=== PATIENT | female | born 1955 | race Caucasian/White ===

== ENCOUNTER 2017-03-15 10:24 | Emergency (ER) | payer OTHER ==
[2017-03-15 11:28] LABS: Bilirubin Negative (Negative); Blood, Urine Small (Negative); Clarity CLOUDY (Clear); Glucose, Urine (Dipstick) Negative (Negative); Leukocyte Small (Negative); Nitrite Positive (Negative); Protein, Urine (Dipstick) Negative (Neg-Trace); Specific Gravity, Urine 1.017 (1.002-1.036); Urobilinogen 0.2 mg/dL (0.2-1.0)
[2017-03-15 11:32] LABS: Bacteria/HPF 4+ HPF (None Seen); Hyaline Casts/LPF 0-3 HYALINE CAST LPF (0-3 Hyaline); Pathc Cast-AUWi Flag 0.13 (0-2.49); Squamous Epithelial 0-3 HPF (0-3)
[2017-03-15 11:40] LABS: #Basophils 0.2 thou/uL (0.0-0.2); #Eosinphils 0.5 thou/uL (0.0-0.7); #Lymphocytes 2.3 thou/uL (1.20-3.40); #Monocytes 0.8 thou/uL (0.11-0.59); #Neutrophils 6.7 thou/uL (1.40-6.50); %Basophils 1.5 % (0.0-1.0); %Eosinophils 4.4 % (0.0-10.0); %Lymphocytes 22.1 % (21.0-51.0); %Neutrophils 64.1 % (42.0-75.0); Hemoglobin 13.1 g/dL (12.0-16.0); Mean Corpuscular HGB CONC 33.9 g/dL (32.0-36.0); Mean Corpuscular Hemoglobin 30.1 pg (27.0-31.0); Mean Corpuscular Volume 88.9 fl (81.0-99.0); Mean Platelet Volume 8.6 fL (7.4-10.4); Platelet Count 252 thou/uL (130-400); Red Blood Cell (RBC) Count 4.33 mill/uL (4.20-5.40); White Blood Cell (WBC) Count 10.4 thou/uL (4.8-10.8)
[2017-03-15 12:09] LABS: CKMB 0.7 ng/mL (0-6.6); Troponin I 0.012 ng/mL (< 0.028)
[2017-03-15 12:10] LABS: Anion Gap 13 mmol/L (10-20); BUN (Urea Nitrogen) 17 mg/dL (9.8-20.1); Calc. Creatinine Clearance 0 mL/min (70-130); Calcium 9.6 mg/dL (7.8-10.44); Carbon Dioxide 25 mmol/L (22-29); Chloride 103 mmol/L (98-107); Estimated GFR-MDRD 33; Glucose 85 mg/dL (70-105); Potassium 4.1 mmol/L (3.5-5.1); Sodium 137 mmol/L (136-145)
--- NOTE | 2017-03-15 12:16 | RAD ---
CHEST 1 VIEW PORTABLE: Date: 03/15/17 HISTORY: 61-year-old female with history of cough, dizziness, sore throat, and chest congestion. COMPARISON: 10/20/15. FINDINGS: Monitor leads overlie the chest. Postop midline sternotomy. Old granuloma calcifications. Stable blun ting in the left costophrenic angle. No confluent pneumonia, overt edema, or other acute process. IMPRESSION: Stable chronic changes, including blunting in the left costophrenic angle. Old granulomatous disease. No acute intrathoracic disease. No evidence for pneumonia. POS: [facility]
--- NOTE | 2017-04-27 11:44 | EKG ---
Test Reason : Blood Pressure : / mmHG Vent. Rate : 063 BPM Atrial Rate : 063 BPM P-R Int : 176 ms QRS Dur : 080 ms QT Int : 438 ms P-R-T Axes : 061 029 047 degrees QTc Int : 448 ms Normal sinus rhythm Possible Left atrial enlargement Borderline ECG Confirmed by MEKHI SANZ, AKI Mchugh ([id number]), proposal editor LUZ MARIA ARNOLD ([id number]) on 04/27/2017 11:43:38 AM Referred By: Confirmed By:AKI GAMING MD
== END 2017-03-15 14:15 | disposition home or self-care (01) ==
LOC: ERS 10:24
DX: N39.0 Urinary tract infection, site not specified (principal); R51 Headache; R55 Syncope and collapse; E78.5 Hyperlipidemia, unspecified; J45.909 Unspecified asthma, uncomplicated; J43.9 Emphysema, unspecified; I12.9 Hypertensive chronic kidney disease with stage 1 through stage 4 chronic kidney disease, or unspecified chronic kidney disease; N18.9 Chronic kidney disease, unspecified; F41.9 Anxiety disorder, unspecified; F17.210 Nicotine dependence, cigarettes, uncomplicated; Z79.82 Long term (current) use of aspirin; Z79.899 Other long term (current) drug therapy
CPT/HCPCS: 36415; 71045; 80048; 81003; 81015; 82553; 84484; 85025; 87077; 87086; 87186; 93005; 96374; J0696

== ENCOUNTER 2017-05-14 09:30 | Emergency (ER) | payer OTHER ==
[2017-05-14] MEDS ORDERED: Ondansetron HCl/PF 4 MG/2 ML Vial ONE (10:12)
[2017-05-14 10:15] LABS: #Eosinphils 0.2 thou/uL (0.0-0.7); #Monocytes 0.4 thou/uL (0.11-0.59); %Basophils 0.6 % (0.0-1.0); %Lymphocytes 18.1 % (21.0-51.0); %Monocytes 7.5 % (0.0-10.0); %Neutrophils 70.9 % (42.0-75.0); Hemoglobin 11.6 g/dL (12.0-16.0); Mean Corpuscular HGB CONC 34.8 g/dL (32.0-36.0); Mean Corpuscular Hemoglobin 30.3 pg (27.0-31.0); Mean Corpuscular Volume 87.2 fl (81.0-99.0); Mean Platelet Volume 8.5 fL (7.4-10.4); Platelet Count 190 thou/uL (130-400); RBC Distribution Width 11.7 % (11.5-14.5); Red Blood Cell (RBC) Count 3.84 mill/uL (4.20-5.40); White Blood Cell (WBC) Count 5.6 thou/uL (4.8-10.8)
[2017-05-14 10:37] LABS: ALT (SGPT) 12 U/L (8-55); AST (SGOT) 17 U/L (5-34); Albumin 3.6 g/dL (3.5-5.0); Alkaline Phosphatase 65 U/L (40-150); Anion Gap 11 mmol/L (10-20); BUN (Urea Nitrogen) 21 mg/dL (9.8-20.1); Bilirubin, Total 0.3 mg/dL (0.2-1.2); Calc. Creatinine Clearance 0 mL/min (70-130); Carbon Dioxide 21 mmol/L (22-29); Chloride 108 mmol/L (98-107); Estimated GFR-MDRD 32; Globulin 2.4 g/dL (2.4-3.5); Glucose 89 mg/dL (70-105); Lipase 20 U/L (8-78); Potassium 3.1 mmol/L (3.5-5.1); Sodium 137 mmol/L (136-145)
--- NOTE | 2017-05-14 10:53 | CT ---
CT ABDOMEN AND PELVIS WITHOUT CONTRAST: Date: 05/14/17 COMPARISON: 01/26/16. HISTORY: Nausea and abdominal pain with vomiting. TECHNIQUE: Multiple contiguous axial images were obtained in a CT of the abdomen and pelvis without contrast. Co arielle reformats were performed. FINDINGS: There are calcifications in the liver and spleen, which are likely sequelae from prior granulomatous disease. No suspicious liver lesions are seen. The gallbladder, kidneys, adrenal glands, and pancreas are unremarkable, although evaluation is limited on this noncontrast examination. The patient is status post hysterectomy. The large and small bowel are unremarkable. The appendix is normal. No abdominal or pelvic lymphadenopathy seen. Atherosclerotic calcifications are seen in the a albina. Atelectasis versus scarring is seen in the left lung base. Degenerative changes and postsurgical ibrahim ges are seen in the spine. Abdominal wall soft tissues are unremarkable. IMPRESSION: No evidence of acute intra-abdominal/pelvic abnormality. POS: [facility]
[2017-05-14] MEDS ORDERED: Potassium Chloride 20 MEQ TAB ONE (13:19)
[2017-05-14] MEDS ORDERED: Dicyclomine 20 MG TAB ONE (13:19)
[2017-05-14 13:35] LABS: Bilirubin Negative (Negative); Blood, Urine Moderate (Negative); Clarity CLEAR (Clear); Glucose, Urine (Dipstick) Negative (Negative); Leukocyte Trace (Negative); Nitrite Positive (Negative); Protein, Urine (Dipstick) Negative (Neg-Trace); Urobilinogen 0.2 mg/dL (0.2-1.0); pH, Urine 5.5 (5.0-9.0)
[2017-05-14 13:40] LABS: Bacteria/HPF 3+ HPF (None Seen); Hyaline Casts/LPF NONE SEEN LPF (0-3 Hyaline); RBC/HPF 0-3 HPF (0-3); Squamous Epithelial 0-3 HPF (0-3); WBC/HPF 0-3 HPF (0-3)
--- NOTE | 2017-05-16 15:02 | EKG ---
Test Reason : Blood Pressure : / mmHG Vent. Rate : 076 BPM Atrial Rate : 076 BPM P-R Int : 176 ms QRS Dur : 084 ms QT Int : 396 ms P-R-T Axes : 062 017 046 degrees QTc Int : 445 ms Normal sinus rhythm Possible Left atrial enlargement Nonspecific T wave abnormality Abnormal ECG Confirmed by ROSE HARRISON ([id number]), commissioning editor LUZ MARIA ARNOLD ([id number]) on 05/16/2017 3:00:40 PM Referred By: Confirmed By:ROSE HARRISON
== END 2017-05-14 14:48 | disposition home or self-care (01) ==
LOC: ERS 09:30
DX: N39.0 Urinary tract infection, site not specified (principal); E78.5 Hyperlipidemia, unspecified; J45.909 Unspecified asthma, uncomplicated; I12.9 Hypertensive chronic kidney disease with stage 1 through stage 4 chronic kidney disease, or unspecified chronic kidney disease; N18.9 Chronic kidney disease, unspecified; J43.9 Emphysema, unspecified; F41.9 Anxiety disorder, unspecified; F17.210 Nicotine dependence, cigarettes, uncomplicated; Z79.899 Other long term (current) drug therapy; Z79.82 Long term (current) use of aspirin
CPT/HCPCS: 36415; 74176; 80053; 81003; 81015; 83605; 83690; 85025; 87077; 87086; 87186; 93005; 96361; 96374; 96375; J0696; J2405

== ENCOUNTER 2017-08-07 13:27 | Observation (INO) | payer OTHER ==
[2017-08-07 14:13] LABS: #Basophils 0.1 thou/uL (0.0-0.2); #Eosinphils 0.4 thou/uL (0.0-0.7); #Lymphocytes 2.4 thou/uL (1.20-3.40); #Monocytes 0.7 thou/uL (0.11-0.59); #Neutrophils 5.8 thou/uL (1.40-6.50); %Basophils 1.3 % (0.0-1.0); %Lymphocytes 25.6 % (21.0-51.0); %Monocytes 7.3 % (0.0-10.0); %Neutrophils 61.8 % (42.0-75.0); Hemoglobin 12.2 g/dL (12.0-16.0); Mean Corpuscular HGB CONC 34.8 g/dL (32.0-36.0); Mean Corpuscular Hemoglobin 29.9 pg (27.0-31.0); Mean Platelet Volume 8.9 fL (7.4-10.4); Platelet Count 221 thou/uL (130-400); RBC Distribution Width 12.1 % (11.5-14.5); Red Blood Cell (RBC) Count 4.07 mill/uL (4.20-5.40); White Blood Cell (WBC) Count 9.4 thou/uL (4.8-10.8)
--- NOTE | 2017-08-07 14:29 | RAD ---
CHEST ONE VIEW: Comparison: 03-15-17 History: Left flank pain. FINDINGS: There are sternotomy wires. There is atherosclerosis of the aortic knob. Normal cardiac silhouette. P ulmonary vessels and hilum are normal. Persistent blunting of the left costophrenic angle. Right cost ophrenic angle is clear. No consolidation or masses. Chronic change in the lung bases. No pneumothora x or osseous abnormality. IMPRESSION: 1. Chronic changes. 2. No acute cardiopulmonary process. 3. Atherosclerosis. POS: [facility]
[2017-08-07 14:34] LABS: ALT (SGPT) 11 U/L (8-55); AST (SGOT) 15 U/L (5-34); Alkaline Phosphatase 88 U/L (40-150); Anion Gap 12 mmol/L (10-20); BUN (Urea Nitrogen) 16 mg/dL (9.8-20.1); Bilirubin, Total 0.3 mg/dL (0.2-1.2); CK (CPK) 77 U/L (29-168); Calc. Creatinine Clearance 0 mL/min (70-130); Calcium 9.1 mg/dL (7.8-10.44); Carbon Dioxide 24 mmol/L (23-31); Chloride 106 mmol/L (98-107); Estimated GFR-MDRD 33; Globulin 2.9 g/dL (2.4-3.5); Glucose 89 mg/dL (80-115); Lipase 37 U/L (8-78); Potassium 3.9 mmol/L (3.5-5.1); Protein, Total 6.9 g/dL (6.0-8.3); Sodium 138 mmol/L (136-145)
[2017-08-07 15:08] LABS: CKMB 0.8 ng/mL (0-6.6); Troponin I 0.019 ng/mL (< 0.028)
--- NOTE | 2017-08-07 15:45 | CT ---
CT ABDOMEN AND PELVIS WITHOUT CONTRAST: 08/07/17 HISTORY: Left upper quadrant, left lower quadrant and left flank pain. FINDINGS: Comparison is made with exam of 05/14/17. Absence of oral and IV contrast reduces the sensitivity for the exam particularly for the evaluation of solid organs and bowel. There are atelectatic changes of the left lung base. Calcified granulomas are seen in the liver and s pleen. No calcified gallstones are noted. No free air or free fluid is seen in the abdomen or pelvis. A normal appearing appendix is noted. The patient is post hysterectomy. No calculi is seen in the kidneys, ureters or the urinary bladder. No hydroureteronephrosis is noted. There is scattered colonic diverticulosis without evidence of diverticulitis. There are vascular calcifications without evidence of aneurysmal dilatation of the abdominal aorta. There are degenerative changes in the spine. IMPRESSION: 1. No CT evidence of renal calculi or obstruction. 2. Colonic diverticulosis. 3. Old granulomatous disease in the liver and spleen. POS: [facility]
[2017-08-07 16:41] LABS: Bilirubin Negative (Negative); Blood, Urine Trace (Negative); Clarity CLEAR (Clear); Glucose, Urine (Dipstick) Negative (Negative); Leukocyte Trace (Negative); Nitrite Positive (Negative); Protein, Urine (Dipstick) Negative (Neg-Trace); Specific Gravity, Urine 1.012 (1.002-1.036); Urobilinogen 0.2 mg/dL (0.2-1.0)
[2017-08-07 16:44] LABS: Bacteria/HPF 4+ HPF (None Seen); Hyaline Casts/LPF 0-3 HYALINE CAST LPF (0-3 Hyaline); Pathc Cast-AUWi Flag 0.29 (0-2.49); RBC/HPF 0-3 HPF (0-3); Squamous Epithelial 0-3 HPF (0-3); WBC/HPF 0-3 HPF (0-3)
[2017-08-07] MEDS ORDERED: cefTRIAXone\\ROCEPHIN 2 GM VIAL ONE (17:34)
[2017-08-07] MEDS ORDERED: Ondansetron ODT 4 MG TAB ONE (17:34)
[2017-08-07 19:46] VITALS: BMI 28.5
[2017-08-07] MEDS ORDERED: Ondansetron ODT 4 MG TAB SL PRN (19:48)
[2017-08-07] MEDS ORDERED: Sodium Chloride 0.9% 1,000 ML IV SCH (19:48)
[2017-08-07] MEDS ORDERED: Ondansetron HCl/PF 4 MG/2 ML Vial IVP PRN (19:48)
[2017-08-07] MEDS ORDERED: PROVENTIL INHALER 6.7 G (200 INHALATIONS) INH PRN (20:25)
[2017-08-07] MEDS: Sodium Chloride 0.9% 1,000 ML IV SCH (20:55)
[2017-08-07] MEDS: Acetaminophen 325 MG TAB PO SCH (22:16)
[2017-08-07] MEDS: ALPRAZolam 0.5 MG TAB PO SCH (22:16)
[2017-08-07] MEDS: diphenhydrAMINE 25 MG CAP PO SCH (22:17)
[2017-08-07] MEDS: Famotidine 20 MG TAB PO SCH (22:17)
[2017-08-07] MEDS: Simvastatin 20 MG TAB PO SCH (22:17)
[2017-08-08] MEDS ORDERED: Ondansetron ODT 4 MG TAB SL PRN (00:18)
[2017-08-08] MEDS ORDERED: Ondansetron HCl/PF 4 MG/2 ML Vial IVP PRN (00:18)
[2017-08-08] MEDS: ALPRAZolam 0.5 MG TAB PO SCH ×3 (08:34→22:20)
[2017-08-08] MEDS: Ibuprofen 600 MG TAB PO PRN ×2 (08:34→14:53)
[2017-08-08] MEDS: Lisinopril/Hydrochlorothiazide 10 mg/12.5 mg Tablet PO SCH (08:34)
[2017-08-08] MEDS: Aspirin 81 mg Enteric Coated Tablet PO SCH (08:34)
[2017-08-08] MEDS: cefTRIAXone\\ROCEPHIN 2 GM in Sodium Chloride 0.9% 100 ML IVPB SCH (11:58)
[2017-08-08] MEDS: Sodium Chloride 0.9% 1,000 ML IV SCH (11:59)
--- NOTE | 2017-08-08 13:03 | ULT ---
RENAL ULTRASOUND: Date: 08-08-17 Comparison: None. History: Evaluate for pyelonephritis. Technique: Multiplanar grayscale sonographic imaging of the kidneys and urinary bladder obtained. FINDINGS: Pyelonephritis cannot be excluded on the basis of renal ultrasound. The right kidney measures 8.6 x 3 .8 x 3.4 cm. Left kidney measures 8.4 x 4.0 x 4.1 cm. There is no renal mass, hydronephrosis, or daysi l stones seen on either side. Urinary bladder appears grossly unremarkable. IMPRESSION: Unremarkable renal ultrasound. POS: [facility]
--- NOTE | 2017-08-08 13:57 | HP ---
REASON CHIEF COMPLAINT: Abdominal pain, left side, left upper quadrant and the left lower quadrant a nd left flank also that started in the morning. HISTORY OF PRESENT ILLNESS: Ms. Ulloa is a 62-year-old female with past medical history o f hypertension, anxiety disorder, chronic back pain, came because of pain in the left flank area as w ell as left upper and lower quadrant of the abdomen, acute onset, started in the morning. The patien t stated the pain is sharp in nature, sometimes radiates to the front, but no fever, she has some eda sea, no vomiting. The pain was getting worse, so she decided to come to the hospital because of wors ening pain. In the ER, the patient was evaluated and was hemodynamically stable, but found to have p ossible urinary infection, possible pyelonephritis. The patient received a dose of Rocephin 2 grams and IV fluids. She also received Zofran and admitted for further evaluation and management. PAST MEDICAL HISTORY: 1. Anxiety disorder. 2. Hypertension. 3. History of coronary artery disease, status post coronary artery bypass graft. 4. Chronic neck pain and back pain. 5. Chronic smoker. 6. Hyperlipidemia. 7. Severe degenerative joint disease of the cervical spine. 8. Chronic kidney disease stage 3. PAST SURGICAL HISTORY: 1. Status post CABG. 2. Status hysterectomy. 3. Status post appendectomy. CURRENT MEDICATIONS: The patient is on Xanax 0.5 t.i.d., albuterol inhaler 2 puffs q.i.d. p.r.n., as pirin 81 mg daily, Pepcid 20 mg b.i.d., lisinopril/hydrochlorothiazide 10/12.5 daily, ibuprofen p.r.n ., Benadryl p.r.n., Zocor 20 mg at bedtime. ALLERGIES: Multiple: SULFA, CODEINE, ASPIRIN, HYDROCODONE, CIPRO, LEVAQUIN, PLAVIX, TORADOL. FAMILY HISTORY: Nothing contributory. SOCIAL HISTORY: The patient lives with family. No history of alcohol intake. Smokes one pack a day . REVIEW OF SYSTEMS: CARDIOVASCULAR: No chest pain or shortness of breath. RESPIRATORY: No fever or cough. GASTROINTESTINAL: Has abdominal pain, left upper and lower quadrants and flank pain. SOCIAL SERVICES ASSISTANT: No headache, no dizziness. PHYSICAL EXAMINATION: GENERAL: The patient is alert, awake, oriented x3. VITAL SIGNS: Temperature 98, pulse 63. HEENT: Pupils are equal and reactive. Nasopharynx is pale and dry. Hard and soft palate, no lesio ns. Skin turgor decreased. NECK: Supple. No JVD. LUNGS: Bilateral air entry present, no rales, no rhonchi. CARDIAC: S1, S2 regular. ABDOMEN: Soft. Tenderness present in the left flank area and upper and lower quadrants. No guardin g, no rigidity. Bowel sounds present. RECTAL: Deferred. CENTRAL NERVOUS SYSTEM: No focal deficit. LABORATORY AND X-RAY FINDINGS: CBC shows WBC 9.4, hemoglobin 12, hematocrit 35, platelets 221. [place] bolic panel; sodium 138, potassium 3.9, chloride 106, CO2 24, urea nitrogen 16, creatinine 1.5, gluco se 89. Urinalysis showed WBCs 0-3, bacteria 4+, nitrite positive. Chest x-ray, no acute cardiopulmo nary process, chronic changes seen. CT of the abdomen and pelvis showed no CT evidence of renal calc nuris or obstruction, shows colonic diverticulosis or granulomatous disease in the liver and spleen. E KG shows normal sinus rhythm, no acute ST-T wave changes seen. ASSESSMENT: 1. Urinary tract infection, possible acute pyelonephritis, left. 2. Acute kidney injury. 3. Hypertension, uncontrolled. 4. Chronic kidney disease stage 3. 5. Coronary artery disease, status post coronary artery bypass graft. 6. Hypertension. 7. Chronic neck pain and back pain. PLAN: 1. Vital signs q.4 hours. 2. Activity: As tolerated. 3. Allergies: Multiple. 4. IV fluids normal saline at 80 mL per hour. 5. Rocephin 2 grams IV piggyback daily. 6. Urine cultures. 7. Continue home medication. 8. We will obtain renal sonogram. 9. Diet: Cardiac.
[2017-08-08] MEDS: Famotidine 20 MG TAB PO SCH (14:52)
[2017-08-08] MEDS ORDERED: traMADol HCl 50 MG TAB PO PRN (15:03)
[2017-08-08] MEDS: diphenhydrAMINE 25 MG CAP PO SCH (22:19)
[2017-08-08] MEDS: Acetaminophen 325 MG TAB PO SCH (22:19)
[2017-08-08] MEDS: Simvastatin 20 MG TAB PO SCH (22:20)
[2017-08-09] MEDS: Sodium Chloride 0.9% 1,000 ML IV SCH (03:36)
[2017-08-09 04:33] LABS: #Basophils 0.1 thou/uL (0.0-0.2); #Eosinphils 0.6 thou/uL (0.0-0.7); #Monocytes 0.6 thou/uL (0.11-0.59); #Neutrophils 3.5 thou/uL (1.40-6.50); %Basophils 1.4 % (0.0-1.0); %Eosinophils 7.4 % (0.0-10.0); %Lymphocytes 38.4 % (21.0-51.0); %Neutrophils 44.8 % (42.0-75.0); Hemoglobin 10.1 g/dL (12.0-16.0); Mean Corpuscular Hemoglobin 29.8 pg (27.0-31.0); Mean Corpuscular Volume 87.6 fL (78.0-98.0); Mean Platelet Volume 8.8 fL (7.4-10.4); Platelet Count 179 thou/uL (130-400); RBC Distribution Width 12.2 % (11.5-14.5); Red Blood Cell (RBC) Count 3.39 mill/uL (4.20-5.40); White Blood Cell (WBC) Count 7.8 thou/uL (4.8-10.8)
[2017-08-09 04:49] LABS: Anion Gap 11 mmol/L (10-20); BUN (Urea Nitrogen) 13 mg/dL (9.8-20.1); Calc. Creatinine Clearance 50 mL/min (70-130); Calcium 8.3 mg/dL (7.8-10.44); Carbon Dioxide 24 mmol/L (23-31); Chloride 110 mmol/L (98-107); Estimated GFR-MDRD 38; Glucose 80 mg/dL (80-115); Potassium 3.9 mmol/L (3.5-5.1); Sodium 141 mmol/L (136-145)
[2017-08-09] MEDS: ALPRAZolam 0.5 MG TAB PO SCH (08:35)
[2017-08-09] MEDS: Aspirin 81 mg Enteric Coated Tablet PO SCH (08:36)
[2017-08-09] MEDS: Lisinopril/Hydrochlorothiazide 10 mg/12.5 mg Tablet PO SCH (08:36)
[2017-08-09] MEDS: Ibuprofen 600 MG TAB PO PRN (08:45)
[2017-08-09] MEDS ORDERED: Famotidine 20 MG TAB PO SCH (09:00)
[2017-08-09 11:54] VITALS: BP 139/64; TEMP 98.1
[2017-08-09] MEDS: cefTRIAXone\\ROCEPHIN 2 GM in Sodium Chloride 0.9% 100 ML IVPB SCH (11:55)
--- NOTE | 2017-08-10 15:20 | EKG ---
Test Reason : Blood Pressure : / mmHG Vent. Rate : 068 BPM Atrial Rate : 068 BPM P-R Int : 168 ms QRS Dur : 076 ms QT Int : 414 ms P-R-T Axes : 058 017 038 degrees QTc Int : 440 ms Normal sinus rhythm Normal ECG Confirmed by GLENDY MADDEN MD ([id number]), script editor APURVA DAVID ([id number]) on 08/10/2017 3:19:40 PM Referred By: Confirmed By:GLENDY MADDEN MD
--- NOTE | 2017-08-13 09:43 | DIS ---
DATE OF ADMISSION: 08/07/2017 DATE OF DISCHARGE: 08/09/2017 ADMITTING DIAGNOSES: 1. Urinary tract infection, possible acute pyelonephritis, left side. 2. Acute kidney injury. 3. Hypertension, uncontrolled. 4. Chronic kidney disease stage 3. 5. Coronary artery disease, status post coronary artery bypass graft. 6. Chronic neck pain and back. FINAL DIAGNOSES: 1. Urinary tract infection, possible acute pyelonephritis, left side improved and acute kidney injur y, improved. 2. Hypertension, uncontrolled, improved. 3. Chronic kidney disease stage 3. 4. Coronary artery disease, status post coronary artery bypass grafting. BRIEF SUMMARY OF HOSPITAL COURSE: Ms. Ulloa is a 62-year-old female admitted because of p ain. The patient was found to have urinary tract infection, possible pyelonephritis. Patient was gi yair IV antibiotics and IV fluids. She was given Rocephin. Urine cultures were done revealed growth of E. coli sensitive to Rocephin and Cipro. Following the patient markedly improved, she did not hav e any fever. Her vital signs are stable. Her pain is controlled. The patient was discharged. At t he time of discharge, she was stable. Her vital signs were stable. Lungs were clear. Heart sounds are regular. Abdomen is soft, nontender. Bowel sounds present. DISCHARGE MEDICATIONS: Include simvastatin 20 mg daily, Xanax 0.5 t.i.d., famotidine 20 b.i.d., vaishnavi nopril/hydrochlorothiazide 10/12.5 daily, ibuprofen p.r.n., albuterol inhaler p.r.n., aspirin 81 mg d aily, Macrobid 100 mg b.i.d. for 10 days. FOLLOWUP: The patient will be followed up in 2 weeks.
== END 2017-08-09 15:45 | disposition home or self-care (01) ==
LOC: ERS 13:27 → 2SW 17:15
PROVIDERS: ADMIT Internal Medicine; ATTEND Internal Medicine
DX: N39.0 Urinary tract infection, site not specified (principal); B96.20 Unspecified Escherichia coli [E. coli] as the cause of diseases classified elsewhere; I12.9 Hypertensive chronic kidney disease with stage 1 through stage 4 chronic kidney disease, or unspecified chronic kidney disease; N18.3 Chronic kidney disease, stage 3 (moderate); N17.9 Acute kidney failure, unspecified; G89.29 Other chronic pain; M54.2 Cervicalgia; M54.9 Dorsalgia, unspecified; F17.210 Nicotine dependence, cigarettes, uncomplicated; E78.5 Hyperlipidemia, unspecified; M47.892 Other spondylosis, cervical region; Z79.82 Long term (current) use of aspirin; Z79.899 Other long term (current) drug therapy; Z88.1 Allergy status to other antibiotic agents; Z88.2 Allergy status to sulfonamides; Z88.5 Allergy status to narcotic agent; Z88.8 Allergy status to other drugs, medicaments and biological substances; Z95.1 Presence of aortocoronary bypass graft
CPT/HCPCS: 36415; 71045; 74176; 76770; 80048; 80053; 81003; 81015; 82550; 82553; 83690; 83880; 84484; 85025; 87077; 87086; 87186; 93005; 96361; 96365; 96366; A4216; G0378; J0696; J7050; Q0162

== ENCOUNTER 2017-11-14 13:56 | Emergency (ER) | payer OTHER ==
[2017-11-14 14:37] LABS: #Basophils 0.1 thou/uL (0.0-0.2); #Eosinphils 0.3 thou/uL (0.0-0.7); #Lymphocytes 2.3 thou/uL (1.20-3.40); #Monocytes 0.7 thou/uL (0.11-0.59); #Neutrophils 5.5 thou/uL (1.40-6.50); %Basophils 1.5 % (0.0-1.0); %Eosinophils 3.7 % (0.0-10.0); %Lymphocytes 25.8 % (21.0-51.0); %Monocytes 7.8 % (0.0-10.0); %Neutrophils 61.2 % (42.0-75.0); Hemoglobin 12.5 g/dL (12.0-16.0); Mean Corpuscular HGB CONC 33.3 g/dL (32.0-36.0); Mean Corpuscular Hemoglobin 29.4 pg (27.0-31.0); Mean Corpuscular Volume 88.3 fL (78.0-98.0); Mean Platelet Volume 9.6 fL (7.4-10.4); Platelet Count 227 thou/uL (130-400); Red Blood Cell (RBC) Count 4.26 mill/uL (4.20-5.40)
[2017-11-14 14:45] LABS: Bilirubin Negative (Negative); Blood, Urine Small (Negative); Clarity CLOUDY (Clear); Glucose, Urine (Dipstick) Negative (Negative); Leukocyte Trace (Negative); Nitrite Negative (Negative); Protein, Urine (Dipstick) Negative (Neg-Trace); Specific Gravity, Urine 1.015 (1.002-1.036); Urobilinogen 0.2 mg/dL (0.2-1.0)
[2017-11-14 14:49] LABS: Bacteria/HPF Rare-Few HPF (None Seen); Hyaline Casts/LPF 0-3 HYALINE CAST LPF (0-3 Hyaline); Pathc Cast-AUWi Flag 0.29 (0-2.49)
[2017-11-14 14:53] LABS: ALT (SGPT) 12 U/L (8-55); AST (SGOT) 16 U/L (5-34); Alkaline Phosphatase 85 U/L (40-150); Anion Gap 11 mmol/L (10-20); BUN (Urea Nitrogen) 20 mg/dL (9.8-20.1); Bilirubin, Total 0.4 mg/dL (0.2-1.2); Calc. Creatinine Clearance 0 mL/min (70-130); Calcium 9.1 mg/dL (7.8-10.44); Carbon Dioxide 26 mmol/L (23-31); Chloride 106 mmol/L (98-107); Estimated GFR-MDRD 30; Glucose 95 mg/dL (80-115); Potassium 3.7 mmol/L (3.5-5.1); Sodium 139 mmol/L (136-145)
--- NOTE | 2017-11-14 15:39 | CT ---
CT LUMBAR SPINE 11/14/17 PROVIDED CLINICAL HISTORY: Back pain with right sided radicular symptoms. FINDINGS: Comparison is made with CT examination dated 08/07/17 of the abdomen and pelvis. Lumbar alignment wendy ears normal. Vertebral body heights appear preserved. Disc and facet degenerative changes are again n oted. Laminectomy changes are seen at L4 and L5. There is a stable focus of gas in the left foraminal region at L5-S1 likely in the basis of vacuum disc phenomenon. This has the potential to impinge upo n the exiting left L5 nerve root. There is stable foraminal narrowing bilaterally at L4-5 and also on the right at L5-S1. There is osteophyte formation arising from the inferior aspect of the T12 verte bral body posteriorly which produces mild effacement of the ventral spinal canal. No significant osse ous spinal canal stenosis is evident. There is no evidence for prevertebral soft tissue stranding or hematoma. Vascular calcifications are seen. IMPRESSION: Lumbar degenerative and postsurgical changes as described above, without evidence for an acute osseou s abnormality. POS: [facility]
--- NOTE | 2017-11-14 15:54 | CT ---
NONCONTRAST CT THORAX: DATE: 11/14/2017. HISTORY: Back pain. The patient has generalized right-sided back pain as well as neck pain with onset 2 days ago. The patient also complains of right hip and knee pain. FINDINGS: Vertebral body heights are within normal limits. There is no fracture or subluxation seen involving the lumbar spine. There are mild multilevel degenerative changes seen in the thoracic spine. There is calcification of the posterior margin of intervertebral disk at the T7-8 level resulting in efface ment of the ventral subarachnoid space centrally. Neural foramina are patent. There is also a simil ar finding centrally along the posterior margin of the T9-10 intervertebral disk also resulting in mi ld effacement of the ventral subarachnoid space. Neural foramen and remainder of the central spinal canal are widely patent at the remaining levels of the thoracic spine. At the T12-L1 level, there is a broad-based disk-osteophyte complex which results in effacement of th e ventral aspect of the subarachnoid space. Neural foramina are patent. There is evidence of prior granulomatous disease with calcified granulomata scattered within the lung s. Calcified, mediastinal, and hilar lymph nodes as well as calcified granulomata in the spleen and liver. Perivertebral soft tissues are within normal limits. There are parenchymal changes seen at the left lung base which were also seen on the study of and may be related to pleural and parenchymal scarring. IMPRESSION: 1. Degenerative changes in the thoracic spine as described above, but there is no significant narrow ing of the central spinal canal or neural foramina at any level. 2. No fracture or subluxation involving the thoracic spine. 3. Vascular calcifications in the thoracic and visualized abdominal aorta. 4. Probable pleural and parenchymal scarring at the left lung base. POS: [facility]
[2017-11-14] MEDS ORDERED: Dexamethasone 4 mg/ml Vial ONE (16:37)
== END 2017-11-14 16:43 | disposition home or self-care (01) ==
LOC: ERS 13:56
DX: M54.17 Radiculopathy, lumbosacral region (principal); M54.13 Radiculopathy, cervicothoracic region; R10.32 Left lower quadrant pain; E78.5 Hyperlipidemia, unspecified; J45.909 Unspecified asthma, uncomplicated; I12.9 Hypertensive chronic kidney disease with stage 1 through stage 4 chronic kidney disease, or unspecified chronic kidney disease; N18.9 Chronic kidney disease, unspecified; F41.9 Anxiety disorder, unspecified; F17.210 Nicotine dependence, cigarettes, uncomplicated; Z79.899 Other long term (current) drug therapy; Z79.82 Long term (current) use of aspirin
CPT/HCPCS: 36415; 72128; 72131; 80053; 81003; 81015; 85025; J1100

== ENCOUNTER 2018-04-02 09:16 | Observation (INO) | payer OTHER ==
[2018-04-02] MEDS ORDERED: Lidocaine Viscous Sol 2% 15 ml UD Cup ONE (09:51)
[2018-04-02] MEDS ORDERED: Pantoprazole 40 MG VIAL ONE (09:52)
[2018-04-02] MEDS ORDERED: Mag-Al 1200 mg/1200 mg/30 ML UDCUP ONE (09:52)
--- NOTE | 2018-04-02 10:27 | RAD ---
CHEST TWO VIEWS: 04/02/2018 HISTORY: Chest pain. COMPARISON: 01/16/2016 FINDINGS: Postoperative clips overly the thoracic inlet. Midline sternotomy wires are noted. There is increas ed linear interstitial density and pulmonary hyperinflation, suggesting air trapping, stable. There is mild increased linear density in the left base with blunting of the left costophrenic angle, stabl e when compared to the prior examination. IMPRESSION: Stable two view examination of the chest, as detailed above. POS: [facility]
[2018-04-02 10:28] LABS: #Basophils 0.1 thou/uL (0.0-0.2); #Eosinphils 0.3 thou/uL (0.0-0.7); #Lymphocytes 1.9 thou/uL (1.20-3.40); #Monocytes 0.7 thou/uL (0.11-0.59); #Neutrophils 4.5 thou/uL (1.40-6.50); %Basophils 1.1 % (0.0-1.0); %Eosinophils 4.5 % (0.0-10.0); %Lymphocytes 25.7 % (21.0-51.0); %Monocytes 9.4 % (0.0-10.0); %Neutrophils 59.3 % (42.0-75.0); Hemoglobin 12.1 g/dL (12.0-16.0); Mean Corpuscular HGB CONC 33.4 g/dL (32.0-36.0); Mean Platelet Volume 8.7 fL (7.4-10.4); Platelet Count 217 thou/uL (130-400); RBC Distribution Width 11.8 % (11.5-14.5); Red Blood Cell (RBC) Count 4.02 mill/uL (4.20-5.40); White Blood Cell (WBC) Count 7.6 thou/uL (4.8-10.8)
[2018-04-02 10:46] LABS: ALT (SGPT) 9 U/L (8-55); AST (SGOT) 15 U/L (5-34); Albumin 3.9 g/dL (3.4-4.8); Alkaline Phosphatase 78 U/L (40-150); Anion Gap 14 mmol/L (10-20); BUN (Urea Nitrogen) 17 mg/dL (9.8-20.1); Bilirubin, Total 0.3 mg/dL (0.2-1.2); Calc. Creatinine Clearance 0 mL/min (70-130); Carbon Dioxide 23 mmol/L (23-31); Chloride 105 mmol/L (98-107); Estimated GFR-MDRD 34; Globulin 2.9 g/dL (2.4-3.5); Glucose 101 mg/dL (80-115); Lipase 33 U/L (8-78); Potassium 3.9 mmol/L (3.5-5.1); Protein, Total 6.8 g/dL (6.0-8.3); Sodium 138 mmol/L (136-145)
--- NOTE | 2018-04-02 12:59 | CT ---
CT HEAD WITHOUT CONTRAST: 04/02/2018 HISTORY: Chest pain. Dizziness. Nausea. COMPARISON: 07/12/2016 TECHNIQUE: Axial CT imaging obtained at 5 mm intervals, from the vertex through the skull base, without contrast . FINDINGS: The imaged paranasal sinuses/mastoid air cells are well aerated. There is no displaced calvarial fracture. There is no intracranial hemorrhage, midline shift, mass e ffect, or ventricular enlargement. IMPRESSION: No acute findings. POS: [facility]
[2018-04-02] MEDS ORDERED: Sodium Chloride 0.9% 1,000 ML IV SCH (17:39)
[2018-04-02] MEDS ORDERED: Ondansetron ODT 4 MG TAB SL PRN (17:39)
[2018-04-02] MEDS ORDERED: Ondansetron PF 4 MG/2 ML Vial IVP PRN (17:39)
[2018-04-02] MEDS ORDERED: Acetaminophen 325 MG TAB PO PRN (17:39)
[2018-04-02 18:16] VITALS: BMI 27.1
[2018-04-02] MEDS ORDERED: PROVENTIL INHALER 6.7 G (200 INHALATIONS) INH PRN (18:58)
[2018-04-02] MEDS ORDERED: Ibuprofen 800 MG TAB PO PRN (18:59)
--- NOTE | 2018-04-02 20:45 | HP ---
CHIEF COMPLAINT: Dizziness, nausea, chest pain. HISTORY OF PRESENT ILLNESS: Ms. Ulloa is a 62-year-old female with past medical history of coronary artery disease, hypertension and anxiety disorder, came because of dizziness and then chest pain. The patient states she was sitting in the porch, felt very dizzy, felt like passing out, and after a few minutes, she started having some sharp chest pain in the retrosternal area, nonradiating, notices shortness of breath. She also has pain in the neck area, sometimes it radiates to the chest. No diaphoresis ,had nausea, but no vomiting. Because of this episode, she called granddaughter who called the EMS. EMS found the patient with normal vital signs and she was brought to the emergency room where she was evaluated, found to have normal EKG and cardiac enzymes. She is being admitted to rule out myocardial infarction. PAST MEDICAL HISTORY: 1. Hypertension. 2. Hyperlipidemia. 3. Coronary artery disease status post CABG. 4. Chronic neck pain and back pain. 5. Chronic tobacco abuse. 6. Anxiety disorder. 7. Hyperlipidemia. 8. Severe degenerative joint disease of cervical spine. 9. Chronic kidney disease, stage 3. PAST SURGICAL HISTORY: 1. Status post CABG. 2. Status post hysterectomy. 3. Status post appendectomy. ALLERGIES: MULTIPLE, INCLUDE SULFA, CODEINE, ASPIRIN, HYDROCODONE, CIPRO, LEVAQUIN, PLAVIX, TORADOL. CURRENT MEDICATIONS: The patient at home takes 1. Simvastatin 20 mg daily. 2. Lisinopril and hydrochlorothiazide one tablet 10/12.5 b.i.d. 3. Ibuprofen p.r.n. 4. Famotidine 20 mg b.i.d. 5. Aspirin 81 mg daily. 6. Albuterol inhaler two puffs p.r.n. 7. Xanax 0.5 mg t.i.d. FAMILY HISTORY: Nothing contributory. SOCIAL HISTORY: The patient lives alone. No history of alcohol intake. Smokes one pack a day, has been smoking for many years. REVIEW OF SYSTEMS: Unremarkable except for the chest pain and dizziness. PHYSICAL EXAMINATION: GENERAL: The patient is alert, awake, oriented x3. VITAL SIGNS: Temperature 98, pulse is 70, respiratory rate 20, blood pressure 153/80. HEENT: Head is normocephalic, atraumatic. Pupils are equal and reactive. Nasopharynx is pale and dry. Hard and soft palate, no lesions. SKIN: Turgor decreased. NECK: Supple. No JVD. LUNGS: Bilateral air entry present. No rales, no rhonchi. HEART: S1 and S2 regular. ABDOMEN: Soft. No distention. No tenderness. Normal bowel sounds. RECTAL: Deferred. CENTRAL NERVOUS SYSTEM: No focal deficit. LABORATORY DATA: CBC shows WBC 7.6, hemoglobin 13, hematocrit 36, platelets 270. Metabolic panel; sodium 138, potassium 3.9, chloride 105, CO2 23, BUN 17, creatinine 1.5, glucose 101. Troponin I is less than 0.010. CT scan of the brain is unremarkable. Chest x-ray, no acute changes. EKG shows normal sinus rhythm , no acute ST-T changes seen. ASSESSMENT: 1. Chest pain, dizziness, and nausea, rule out myocardial infarction. 2. Rule out cardiac arrhythmia. 3. Hypertension. 4. Coronary artery status post coronary artery bypass graft. 5. Hyperlipidemia. 6. Chronic neck pain. 7. Anxiety disorder. 8. Degenerative joint disease of the C-spine. 9. Tobacco abuse. PLAN: 1. Vital signs q.4 hours. 2. Activities, as tolerated. 3. Allergies, multiple. 4. Hep-Lock. 5. Troponin I q.6 hours x2. 6. Aspirin 81 mg daily. 7. Continue home medications. 8. The patient is advised to get a stress test, but the patient declined. She says she will follow up with a dyehouse worker as an outpatient. Job ID: [id number] MTDD
[2018-04-02] MEDS ORDERED: Acetaminophen 500 MG TAB PO SCH (21:00)
[2018-04-02] MEDS ORDERED: diphenhydrAMINE 25 MG CAP PO SCH (21:00)
[2018-04-02] MEDS ORDERED: Atorvastatin Calcium 10 MG TAB PO SCH (21:00)
[2018-04-02] MEDS: Famotidine 20 MG TAB PO SCH (21:39)
[2018-04-02] MEDS: ALPRAZolam 0.5 MG TAB PO SCH (21:39)
[2018-04-03 08:07] VITALS: BP 122/59; TEMP 99
[2018-04-03] MEDS ORDERED: Aspirin 81 mg Enteric Coated Tablet PO SCH (09:00)
[2018-04-03] MEDS ORDERED: Lisinopril/Hydrochlorothiazide 10 mg/12.5 mg Tablet PO SCH (09:00)
[2018-04-03] MEDS: Famotidine 20 MG TAB PO SCH (09:49)
[2018-04-03] MEDS: ALPRAZolam 0.5 MG TAB PO SCH (09:49)
--- NOTE | 2018-04-04 15:01 | DIS ---
DATE OF ADMISSION: 04/02/2018 DATE OF DISCHARGE: 04/03/2018 ADMITTING DIAGNOSES: 1. Chest pain, dizziness, nausea, rule out myocardial infarction. 2. Rule out cardiac arrhythmia. 3. Hypertension. 4. Coronary artery disease, status post coronary artery bypass grafting. 5. Hyperlipidemia. 6. Chronic neck pain. 7. Anxiety disorder. FINAL DIAGNOSES: 1. Chest pain. No evidence of acute myocardial infarction. The patient declines stress test. Dizziness have resolved. No evidence of cardiac arrhythmia. 2. Hypertension. 3. Coronary artery disease, status post coronary artery bypass grafting. 4. Hyperlipidemia. 5. Chronic neck pain. 6. Anxiety disorder. BRIEF SUMMARY OF HOSPITAL COURSE: Ms. Ulloa is a 62-year-old female admitted because of chest pain. The patient was admitted to rule out myocardial infarction. Serial cardiac enzymes were done and there are within normal limits. Second troponin was less than 0.01 and third was also less than 0.01. chemistry specialist did not show any arrhythmia. The patient needed stress test, but she declines this. She will follow with her pre kindergarten teacher as an outpatient. DISCHARGE MEDICATIONS: Include: 1. Simvastatin 20 mg at bedtime. 2. Xanax 0.5 t.i.d. 3. Famotidine 20 mg b.i.d. 4. Lisinopril and hydrochlorothiazide 10/12.5 daily. 5. Albuterol inhaler p.r.n. q 6hrs FOLLOWUP: The patient will come for a followup in 2 weeks. Job ID: [id number] MTDD
--- NOTE | 2018-04-05 20:32 | EKG ---
Test Reason : CP Blood Pressure : / mmHG Vent. Rate : 068 BPM Atrial Rate : 068 BPM P-R Int : 168 ms QRS Dur : 078 ms QT Int : 410 ms P-R-T Axes : 060 023 055 degrees QTc Int : 435 ms Normal sinus rhythm Normal ECG Confirmed by MARCIA ALDRIDGE ([id number]), sports editor LUZ MARIA ARNOLD ([id number]) on 04/05/2018 8:31:27 PM Referred By: Confirmed By:MARCIA ALDRIDGE
== END 2018-04-03 11:35 | disposition home or self-care (01) ==
LOC: ERS 09:16 → ERHOLD 12:39 → 2SW 17:20
PROVIDERS: ADMIT Internal Medicine; ATTEND Internal Medicine
DX: R07.2 Precordial pain (principal); R42 Dizziness and giddiness; I25.10 Atherosclerotic heart disease of native coronary artery without angina pectoris; E78.5 Hyperlipidemia, unspecified; G89.29 Other chronic pain; M54.2 Cervicalgia; M54.9 Dorsalgia, unspecified; F41.9 Anxiety disorder, unspecified; I12.9 Hypertensive chronic kidney disease with stage 1 through stage 4 chronic kidney disease, or unspecified chronic kidney disease; N18.3 Chronic kidney disease, stage 3 (moderate); F17.210 Nicotine dependence, cigarettes, uncomplicated; M47.812 Spondylosis without myelopathy or radiculopathy, cervical region; J44.9 Chronic obstructive pulmonary disease, unspecified; Z79.82 Long term (current) use of aspirin; Z79.899 Other long term (current) drug therapy; Z88.1 Allergy status to other antibiotic agents; Z88.2 Allergy status to sulfonamides; Z88.4 Allergy status to anesthetic agent; Z88.5 Allergy status to narcotic agent; Z88.8 Allergy status to other drugs, medicaments and biological substances; Z95.1 Presence of aortocoronary bypass graft
CPT/HCPCS: 36415; 70450; 71046; 80053; 83690; 84484; 85025; 93005; 96361; 96374; C9113; G0378; Q0163

== ENCOUNTER 2018-07-15 05:01 | Observation (INO) | payer OTHER ==
[2018-07-15] MEDS ORDERED: methylPREDNISolone Sod Succ/PF 125 MG/2 ML VIAL ONE ×2 (05:28→05:29)
[2018-07-15] MEDS ORDERED: Nitroglycerin 0.4 MG TAB 1 EACH ONE (05:28)
[2018-07-15 05:39] LABS: #Basophils 0.2 thou/uL (0.0-0.2); #Eosinphils 0.7 thou/uL (0.0-0.7); #Monocytes 0.9 thou/uL (0.11-0.59); #Neutrophils 5.8 thou/uL (1.40-6.50); %Basophils 1.5 % (0.0-1.0); %Eosinophils 6.4 % (0.0-10.0); %Lymphocytes 28.4 % (21.0-51.0); %Monocytes 8.8 % (0.0-10.0); Hemoglobin 12.1 g/dL (12.0-16.0); Mean Corpuscular HGB CONC 33.2 g/dL (32.0-36.0); Mean Corpuscular Hemoglobin 29.2 pg (27.0-31.0); Mean Corpuscular Volume 87.9 fL (78.0-98.0); Mean Platelet Volume 8.9 fL (7.4-10.4); Platelet Count 252 thou/uL (130-400); RBC Distribution Width 11.9 % (11.5-14.5); Red Blood Cell (RBC) Count 4.13 mill/uL (4.20-5.40); White Blood Cell (WBC) Count 10.5 thou/uL (4.8-10.8)
[2018-07-15 05:48] LABS: Bilirubin Negative (Negative); Blood, Urine Trace (Negative); Clarity CLEAR (Clear); Glucose, Urine (Dipstick) Negative (Negative); Leukocyte Negative (Negative); Nitrite Negative (Negative); Protein, Urine (Dipstick) Negative (Neg-Trace); Specific Gravity, Urine 1.008 (1.002-1.036); Urobilinogen 0.2 mg/dL (0.2-1.0); pH, Urine 6.5 (5.0-9.0)
[2018-07-15 05:53] LABS: Bacteria/HPF None Seen HPF (None Seen); Hyaline Casts/LPF 0-3 HYALINE CAST LPF (0-3 Hyaline); RBC/HPF 0-3 HPF (0-3); Squamous Epithelial None Seen HPF (0-3); WBC/HPF 0-3 HPF (0-3)
[2018-07-15 05:59] LABS: ALT (SGPT) 12 U/L (8-55); AST (SGOT) 16 U/L (5-34); Albumin 4.2 g/dL (3.4-4.8); Alkaline Phosphatase 95 U/L (40-150); Anion Gap 14 mmol/L (10-20); BUN (Urea Nitrogen) 21 mg/dL (9.8-20.1); Bilirubin, Total 0.3 mg/dL (0.2-1.2); Calc. Creatinine Clearance 0 mL/min (70-130); Calcium 9.5 mg/dL (7.8-10.44); Carbon Dioxide 24 mmol/L (23-31); Chloride 104 mmol/L (98-107); Estimated GFR-MDRD 32; Globulin 2.7 g/dL (2.4-3.5); Glucose 110 mg/dL (80-115); Protein, Total 6.9 g/dL (6.0-8.3); Sodium 138 mmol/L (136-145)
[2018-07-15] MEDS ORDERED: Ondansetron PF 4 MG/2 ML Vial ONE (06:01)
--- NOTE | 2018-07-15 07:27 | RAD ---
CHEST 1 VIEW: Date: 07/15/18 INDICATION: Shortness of breath. COMPARISON: Prior exam dated 04/02/18. FINDINGS: There is post CABG change and mild cardiomegaly. There is stable thickening involving the left pleura . Calcified granuloma in the right lung apex is stable. No air space consolidation or pneumothorax is evident. No acute osseous abnormalities noted. IMPRESSION: No acute cardiopulmonary abnormality. POS: [facility]
[2018-07-15 08:47] LABS: Troponin I Less than 0.010 ng/mL (< 0.028)
[2018-07-15 11:45] LABS: Troponin I Less than 0.010 ng/mL (< 0.028)
[2018-07-15] MEDS ORDERED: Acetaminophen 325 MG TAB PO PRN (15:31)
[2018-07-15 15:52] VITALS: BMI 28.5
[2018-07-15] MEDS ORDERED: Aspirin 325 MG TAB PO SCH (16:00)
[2018-07-15] MEDS ORDERED: Nitroglycerin 0.4 MG TAB 1 EACH SL PRN (18:38)
[2018-07-15] MEDS ORDERED: PROVENTIL INHALER 6.7 G (200 INHALATIONS) INH PRN (18:42)
[2018-07-15] MEDS ORDERED: diphenhydrAMINE 25 MG CAP PO SCH (21:00)
[2018-07-15] MEDS ORDERED: TYLENOL PM PO SCH (21:00)
[2018-07-15] MEDS ORDERED: Simvastatin 5 MG TAB PO SCH (21:00)
[2018-07-15] MEDS ORDERED: Acetaminophen 500 MG TAB PO SCH (21:00)
[2018-07-15] MEDS: ALPRAZolam 0.5 MG TAB PO PRN (23:39)
--- NOTE | 2018-07-16 00:42 | HP ---
CHIEF COMPLAINT: Shortness of breath. HISTORY OF PRESENT ILLNESS: Artemio is a 62-year-old female with past medical history of coronary artery disease, status post CABG; hypertension; hyperlipidemia, woke up in the night and could not breathe. The patient claims she did not have any chest discomfort. She felt stuffy in the nose and her grandchild switched on the fan. Later, she developed this difficulty breathing, she became panicky because she could not breathe. EMS was called. EMS found the patient with normal vital signs and in view of that shortness of breath, they brought to her to the emergency room. In the ER, the patient was evaluated and found to have normal EKG and according to ER, the patient has some chest pressure, but the patient denies that. In view of her risk factors, she is being admitted to rule out myocardial infarction. PAST MEDICAL HISTORY: 1. Hypertension. 2. Coronary artery disease, status post CABG. 3. Hyperlipidemia. 4. Anxiety disorder. 5. Chronic tobacco abuse. 6. Chronic neck pain and back pain. 7. Chronic kidney disease stage 3. PAST SURGICAL HISTORY: 1. Status post CABG. 2. Status post hysterectomy. 3. Status post appendectomy. ALLERGIES: MULTIPLE, INCLUDE SULFA, CODEINE, ASPIRIN, HYDROCODONE, CIPRO, LEVAQUIN, PLAVIX, AND TORADOL. CURRENT MEDICATIONS: The patient is on; 1. Simvastatin 20 mg daily. 2. Lisinopril with hydrochlorothiazide 10/12.5 b.i.d. 3. Famotidine 20 b.i.d. 4. Aspirin 81 mg daily. 5. Albuterol inhaler 2 puffs t.i.d. p.r.n. 6. Xanax 0.5 t.i.d. FAMILY HISTORY: Nothing contributory. SOCIAL HISTORY: Patient lives alone. No history of alcohol intake. Smokes one pack a day. REVIEW OF SYSTEMS: Unremarkable except for the shortness of breath. PHYSICAL EXAMINATION: GENERAL: The patient is alert, awake, and oriented x3. VITAL SIGNS: Temperature 98, pulse 65, respirations 20, blood pressure 160/70. HEENT: Head is normocephalic and atraumatic. Pupils are equal and reactive. Nasopharynx is pale and dry. Hard and soft, no lesions. SKIN: Turgor decreased. NECK: Supple. No JVD. LUNGS: Bilateral air entry. No rales. No rhonchi. HEART: S1, S2. Regular. ABDOMEN: Soft. No distention. No tenderness. Normal bowel sounds. RECTAL: Deferred. CENTRAL NERVOUS SYSTEM: No focal deficits. LABORATORY DATA: CBC shows WBC 10, hemoglobin 12, hematocrit 36, platelets 252. Metabolic panel; sodium 138, potassium 4, chloride 104, CO2 of 24, urea nitrogen 21, creatinine 1.6, glucose 110. Troponin I less than 0.01. IMAGING STUDIES: Chest x-ray negative. Urinalysis negative. EKG showed normal sinus rhythm, no acute ST-T changes seen. ASSESSMENT: 1. Shortness of breath and questionable chest pressure, rule out myocardial infarction. 2. Hypertension. 3. Hyperlipidemia. 4. Coronary artery disease, status post coronary artery bypass graft. 5. Tobacco abuse. 6. Anxiety disorder. 7. Chronic pain. PLAN: 1. Vital signs q.4 hours. 2. Activity as tolerated. 3. Hep-Lock. 4. Diet, cardiac. 5. Allergies include sulfa, codeine, aspirin, hydrocodone, Cipro, Levaquin, Plavix, and Toradol. 6. Hep-Lock. 7. Continue home medications. 8. We will advise stress test, but the patient declines stress test in the pas. Job ID: [id number]
[2018-07-16] MEDS: ALPRAZolam 0.5 MG TAB PO PRN ×2 (08:17→14:33)
[2018-07-16] MEDS ORDERED: Lisinopril/Hydrochlorothiazide 10 mg/12.5 mg Tablet PO SCH (09:00)
[2018-07-16] MEDS ORDERED: Bupivacaine HCl 0.5%/Epinephrine 1:200,000/PF 30 ml Vial ONE (09:29)
[2018-07-16] MEDS ORDERED: Famotidine/PF 20 mg/2ml Vial ONE (09:54)
[2018-07-16] MEDS ORDERED: Fentanyl 100 MCG/2 ML VIAL ONE ×2 (09:54→12:04)
[2018-07-16] MEDS ORDERED: Famotidine 20 MG TAB PO SCH (15:00)
[2018-07-16 15:59] VITALS: BP 185/76; TEMP 97.6
[2018-07-16] MEDS ORDERED: Silver Sulfadiazine 1% Cream 50 GM JAR TOP SCH (21:00)
--- NOTE | 2018-07-17 12:31 | DIS ---
DATE OF ADMISSION: 07/15/2018 DATE OF DISCHARGE: 07/16/2018 ADMITTING DIAGNOSES: 1. Shortness of breath and questionable chest pressure, rule out myocardial infarction. 2. Hypertension. 3. Hyperlipidemia. 4. Coronary artery disease, status post coronary artery bypass graft. 5. Tobacco abuse. 6. Chronic pain. 7. Anxiety disorder. FINAL DIAGNOSES: 1. Shortness of breath, questionable chest pressure. There is no evidence of acute myocardial infarction. The patient declined stress test. 2. Hypertension. 3. Hyperlipidemia. 4. Coronary artery disease, status post coronary artery bypass graft. 5. Tobacco abuse. 6. Anxiety disorder. 7. Chronic pain. BRIEF SUMMARY OF HOSPITAL COURSE: Ms. Ulloa is a 62-year-old female, admitted because of shortness of breath. The patient was also advised to undergo stress test, but she declined. She didn't have any more chest pain. . In view of improvement, the patient is being discharged home. Lungs are clear. Abdomen is soft and nontender. Bowel sounds are heard. DISCHARGE MEDICATIONS: Include; 1. Simvastatin 20 mg tablets, 1/2 tablet at bedtime. 2. Xanax 0.5 mg t.i.d. 3. Lisinopril with hydrochlorothiazide 10/12.5 daily. 4. Albuterol inhaler b.i.d. p.r.n. 5. Aspirin 81 daily. 6. Tylenol p.r.n. 7. Pepcid 20 b.i.d. 8. Nitroglycerin p.r.n. sublingual. 9. Also given Nystatin cream to apply below the breast for 2 weeks. 10. Silvadene cream to the back bid.. The patient will come for followup in 2 weeks. Job ID: [id number] [facility]
== END 2018-07-16 17:05 | disposition home or self-care (01) ==
LOC: ERS 05:01 → ERHOLD 06:41 → 2SW 14:42
PROVIDERS: ADMIT Internal Medicine; ATTEND Internal Medicine
DX: R06.02 Shortness of breath (principal); I12.9 Hypertensive chronic kidney disease with stage 1 through stage 4 chronic kidney disease, or unspecified chronic kidney disease; N18.3 Chronic kidney disease, stage 3 (moderate); I25.10 Atherosclerotic heart disease of native coronary artery without angina pectoris; E78.5 Hyperlipidemia, unspecified; F17.210 Nicotine dependence, cigarettes, uncomplicated; F41.9 Anxiety disorder, unspecified; G89.29 Other chronic pain; M54.2 Cervicalgia; M54.9 Dorsalgia, unspecified; Z95.1 Presence of aortocoronary bypass graft; Z88.2 Allergy status to sulfonamides; Z88.6 Allergy status to analgesic agent; Z88.8 Allergy status to other drugs, medicaments and biological substances; Z79.899 Other long term (current) drug therapy
CPT/HCPCS: 36415; 71045; 80053; 81003; 81015; 83880; 84484; 85025; 93005; 94760; 96374; G0378; J0670; J1610; J2405; J2930; J3010; J7620; Q0163; S0028

== ENCOUNTER 2018-12-08 03:59 | Observation (INO) | payer OTHER ==
[2018-12-08 04:42] LABS: #Basophils 0.1 thou/uL (0.0-0.2); #Eosinphils 0.6 thou/uL (0.0-0.7); #Lymphocytes 3.1 thou/uL (1.20-3.40); #Neutrophils 6.1 thou/uL (1.40-6.50); %Basophils 1.3 % (0.0-1.0); %Eosinophils 5.9 % (0.0-10.0); %Lymphocytes 28.2 % (21.0-51.0); %Monocytes 9.1 % (0.0-10.0); %Neutrophils 55.5 % (42.0-75.0); Hemoglobin 11.9 g/dL (12.0-16.0); Mean Corpuscular HGB CONC 34.1 g/dL (32.0-36.0); Mean Corpuscular Hemoglobin 29.9 pg (27.0-31.0); Mean Corpuscular Volume 87.8 fL (78.0-98.0); Mean Platelet Volume 9.2 fL (7.4-10.4); Platelet Count 221 thou/uL (130-400); Red Blood Cell (RBC) Count 3.99 mill/uL (4.20-5.40)
[2018-12-08 05:08] LABS: ALT (SGPT) 15 U/L (8-55); AST (SGOT) 15 U/L (5-34); Albumin 4.1 g/dL (3.4-4.8); Alkaline Phosphatase 84 U/L (40-110); Anion Gap 13 mmol/L (10-20); BUN (Urea Nitrogen) 22 mg/dL (9.8-20.1); Bilirubin, Total 0.4 mg/dL (0.2-1.2); Calc. Creatinine Clearance 0 mL/min (70-130); Calcium 9.1 mg/dL (7.8-10.44); Carbon Dioxide 23 mmol/L (23-31); Chloride 104 mmol/L (98-107); Estimated GFR-MDRD 30; Globulin 2.6 g/dL (2.4-3.5); Glucose 95 mg/dL (80-115); Lipase 34 U/L (8-78); Potassium 3.7 mmol/L (3.5-5.1); Protein, Total 6.7 g/dL (6.0-8.3); Sodium 136 mmol/L (136-145)
[2018-12-08 05:12] LABS: Bilirubin Negative (Negative); Blood, Urine Trace (Negative); Clarity Clear (Clear); Glucose, Urine (Dipstick) Normal (Negative); Leukocyte Negative Leu/uL (Negative); Nitrite Negative (Negative); Protein, Urine (Dipstick) Negative (Neg-Trace); RBC/HPF 0-3 HPF (0-3); Squamous Epithelial 0-3 HPF (0-3); Urobilinogen Normal mg/dL (Less than 2); WBC/HPF 0-3 HPF (0-3)
[2018-12-08 05:21] LABS: Bacteria/HPF 1+ HPF (None Seen)
[2018-12-08 08:28] VITALS: BMI 28.0
[2018-12-08] MEDS ORDERED: FLU VACC QS2019-20(6MOS UP)/PF 60 MCG/0.5 ML SYRINGE IM ONE (08:45)
--- NOTE | 2018-12-08 08:50 | CT ---
PRELIMINARY REPORT/[facility]/EMERGENCY AFTER HOURS PROCEDURE: PROCEDURE INFORMATION: Exam: CT Abdomen And Pelvis Without Contrast Exam date and time: 12/08/2018 4:47 AM Clinical history: 63 years old, female; Patient HX: F63 presents to ED for chest/abdominal pain x2 we eks. PT reports chest pain radiates into arms and neck x2 weeks. PT reports the chest pain comes and goes, sharp pain for 1 minute, unsure what makes it worse/better. PT also complains of right sided abdominal pain x2 weeks, constant pain, feels she is unable to digest properly. Denies n/v/d, r eports she has had blood in urine and in stool x12 years, has been evaluated for it without finding o f cause. PT also reports her ears are ringing. PT reports smoking 1 pack of cigarettes a day, also reports cough. [employer] is Dr. Mehta, has not seen "in a while. ". Hx- open heart surgery in 2 006, hysterectomy; Smokes about 1; Reports kidney disease and unable to tolerate dye. TECHNIQUE: Imaging protocol: Computed tomography of the abdomen and pelvis without contrast. COMPARISON: No relevant prior studies available. FINDINGS: Lungs: There is nonspecific interstitial thickening/scarring at the left lung base. Liver: There are no focal liver lesions identified. Gallbladder and bile ducts: The gallbladder is normal. There is no evidence of biliary ductal dilatio n. Pancreas: The pancreas appears normal. No ductal dilatation. Spleen: The spleen demonstrates punctate calcifications, consistent with remote granulomatous organis m exposure. Adrenals: The adrenal glands are normal. Kidneys and ureters: Normal. No hydronephrosis. Stomach and bowel: The stomach is normal. The duodenum is unremarkable. The colon is normal. Appendix: A normal appendix is identified. Intraperitoneal space: Unremarkable. No free air. No significant fluid collection. Vasculature: Unremarkable. No abdominal aortic aneurysm. Lymph nodes: Unremarkable. No enlarged lymph nodes. Bladder: The bladder is normal. Reproductive: The uterus is not visualized, and may be atrophic or surgically absent. Bones/joints: There is posterior decompression of the lumbar spine at L5. Soft tissues: Unremarkable. IMPRESSION: 1. No acute abdominal pelvic pathology. 2. Scarring and/or atelectasis at the left lung base. Thank you for allowing us to participate in the care of your patient. Dictated and Authenticated by: Rajeev Guthrie MD 12/08/2018 5:10 AM Central Time ([place] & [place]) FINAL REPORT EMERGENCY AFTER HOURS CT ABDOMEN AND PELVIS PERFORMED WITHOUT CONTRAST ENHANCEMENT: Date: 12/08/18 HISTORY: Right-sided abdomen pain x2 weeks. COMPARISON: 08/07/17 exam. FINDINGS: The lung bases show linear scarring in the left base. Liver, spleen, pancreas, and gallbladder regions are unremarkable. Right and left adrenal glands, and right and left kidneys are normal in size. There is no significant periaortic or mesenteric adenopathy. There is some colonic diverticulosis noted in the descending an d sigmoid region. No inflammatory change. CT of pelvis was performed without contrast enhancement. No adenopathy or mass. The appendix is eddie l. Review of osseous structures show arthritic changes of the spine. IMPRESSION: 1. Colonic diverticulosis. 2. Linear scarring left lung base. 3. No acute abnormalities of abdomen or pelvis. This report is in agreement with the preliminary report issued by [facility]. POS: OFF
--- NOTE | 2018-12-08 09:37 | RAD ---
FRONTAL VIEW CHEST: INDICATIONS: Chest pain. COMPARISON: 07/15/2018 FINDINGS: Stable postoperative changes of the chest. No lobar consolidation. Stable flattening of the left fredy diaphragm with obscuration of the left costophrenic sulcus. IMPRESSION: Stable chest. POS: [facility]
[2018-12-08 10:07] LABS: Troponin I Less than 0.010 ng/mL (< 0.028)
[2018-12-08] MEDS ORDERED: Nitroglycerin 0.4 MG TAB (25 Tab Bottle) SL PRN (10:12)
[2018-12-08] MEDS ORDERED: PROVENTIL INHALER 6.7 G (200 INHALATIONS) INH PRN (10:13)
[2018-12-08 12:38] LABS: Troponin I 0.019 ng/mL (< 0.028)
[2018-12-08] MEDS ORDERED: Famotidine 20 MG TAB PO SCH (15:00)
[2018-12-08] MEDS: ALPRAZolam 0.5 MG TAB PO SCH ×2 (15:04→22:16)
--- NOTE | 2018-12-08 16:30 | CON ---
DATE OF CONSULTATION: HISTORY OF PRESENT ILLNESS: A 63-year-old woman who presents for evaluation of recurrent chest discomfort. The patient has a long history of coronary artery disease. She previously underwent coronary artery bypass surgery in 2013. She was found to have severe 3-vessel coronary artery disease that she had a BOURNE placed to the LAD, saphenous vein graft to an OM and RCA. The patient has been admitted on subsequent on several occasions with chest discomfort. The patient suffers from severe anxiety. She states she was in her usual state of health when she started having increasing chest discomfort. She states this is left-sided and radiates up into her jaw. The patient states she usually lasts 5 to 10 minutes. It is often brought on by exertion and relieved by rest. PAST MEDICAL HISTORY: 1. Coronary artery disease. 2. Hypertension. 3. Anxiety disorder. 4. Dyslipidemia. PAST SURGICAL HISTORY: Appendectomy, hysterectomy, coronary artery bypass graft surgery. ALLERGIES: SHE IS ALLERGIC TO SULFA DRUGS, CODEINE, ASPIRIN, HYDROCODONE. SHE HAS ALSO ALLERGIES TO CIPROFLOXACIN AND KETORALAC. SOCIAL HISTORY: The patient has a long history of tobacco abuse. FAMILY HISTORY: Positive family history of coronary artery disease. MEDICATIONS: She takes, 1. Aspirin 81 daily. 2. Zocor 10 at bedtime. 3. Lisinopril/hydrochlorothiazide 10/12.5 daily. 4. Pepcid 20 daily. 5. Xanax 0.5 t.i.d. REVIEW OF SYSTEMS: Ten-point system noticeable for increasing anxiety. Otherwise unremarkable. PHYSICAL EXAMINATION: GENERAL: Anxious woman with a blood pressure 149/68. NECK: No jugular venous distention. LUNGS: Clear to auscultation. HEART: Regular rate and rhythm. Normal S1 and S2. No murmurs. ABDOMEN: Nondistended. EXTREMITIES: No edema. VASCULAR: Radial pulses 2+. LABORATORY DATA: Sodium 136, potassium 3.7, chloride 104, bicarb 22, BUN 22, and creatinine 1.73. Troponin less than 0.01. White blood cell count 11.0, hemoglobin 11.9, hematocrit 35.1, and platelets 221. Her EKG revealed normal sinus rhythm with normal ECG. IMPRESSION: 1. Chest pain suggestive of angina. 2. History of coronary artery bypass surgery. 3. Hypertension. 4. Dyslipidemia. 5. Renal insufficiency. 6. Tobacco abuse. 7. Renal insufficiency. PLAN: This patient presents with chest pain suggestive of angina. She has been noncompliant with her followup. From a cardiac standpoint, would add Imdur to her medical regimen. We will obtain a stress test to see if there is any evidence of ischemia with the patient has been highly advised to discontinue smoking. The patient should be on higher dose statin therapy and will switch to Lipitor. We will follow this patient with you through her hospitalization. Please call my office. Job ID: [id number]
[2018-12-08] MEDS ORDERED: Simvastatin 5 MG TAB PO SCH (21:00)
[2018-12-08] MEDS ORDERED: Atorvastatin Calcium 40 MG TAB PO SCH ×2 (21:00)
--- NOTE | 2018-12-08 21:45 | HP ---
CHIEF COMPLAINT: Chest pain, abdominal pain for 2 weeks. HISTORY OF PRESENT ILLNESS: Ms. Ulloa is a 63-year-old female with past medical history of hypertension and coronary artery disease, complaining of pain in the chest which radiates to the left arm and neck, going on and off for the last 2 weeks, lasts only few minutes at a time. No nausea or vomiting. No diaphoresis. Also has some lower abdominal pain on and off as well. It radiates to the upper abdomen, so the patient is going to the hospital because of the persistent pain. She was evaluated in the ER, received aspirin and nitroglycerin and is admitted for rule out myocardial infarction, right chest pain. PAST MEDICAL HISTORY: 1. Hypertension. 2. Coronary artery disease. 3. Chronic neck pain, back pain. 4. Chronic tobacco abuse. 5. Anxiety disorder. 6. Hyperlipidemia. 7. Chronic kidney disease stage 3. PAST SURGICAL HISTORY: 1. Status post CABG. 2. Status post hysterectomy. 3. Status post coronary artery bypass graft. CURRENT MEDICATIONS: The patient is on simvastatin 20 mg daily, lisinopril and hydrochlorothiazide 10/12.5 b.i.d., famotidine 20 b.i.d., aspirin 81 mg daily, albuterol inhaler t.i.d. p.r.n., Xanax 0.5 mg t.i.d., nitroglycerin p.r.n. ALLERGIES: MULTIPLE, WHICH INCLUDES SULFA, CODEINE, ASPIRIN, HYDROCODONE, CIPRO, LEVAQUIN, PLAVIX, AND TORADOL. FAMILY HISTORY: Nothing contributory. SOCIAL HISTORY: Patient lives alone. No history of alcohol. Smokes one pack a day. Has been smoking for many years. REVIEW OF SYSTEMS: Unremarkable except for the chest pain and abdominal discomfort. PHYSICAL EXAMINATION: GENERAL: The patient is alert, awake, and oriented x3. VITAL SIGNS: Temperature 98, pulse 70, respirations 20, blood pressure 150/70. HEENT: Head is normocephalic, atraumatic. Pupils are equal and reactive. Nasopharynx is pale and dry. NECK: Supple. No JVD. LUNGS: Bilateral air entry. No rales, no rhonchi. HEART: S1-S2 regular. ABDOMEN: Soft. No distention. No tenderness. No organomegaly. Normal bowel sounds present. RECTAL: Deferred. CENTRAL NERVOUS SYSTEM: No focal neurological deficits. LABORATORY DATA: CBC shows WBC 11, hemoglobin 11.9, hematocrit 35, platelets 221. Metabolic panel; sodium 136, potassium 3.7, chloride 104, CO2 of 23, urea nitrogen 22, creatinine 1.7, glucose 95. Troponin I less than 0.010. DIAGNOSTIC STUDIES: Chest x-ray stable, negative chest x-ray. EKG shows normal sinus rhythm, no acute ST-T wave changes seen. CT scan of the abdomen done in the ER, no acute abdominal or pelvic pathology. There is some scarring versus atelectasis at the left lung base. ASSESSMENT: 1. Chest pain, rule out myocardial infarction. 2. Coronary artery disease, status post coronary artery bypass graft. 3. Anxiety disorder. 4. Hypertension. 5. Hyperlipidemia. 6. Chronic back pain and neck pain. 7. Abdominal pain. PLAN: 1. Vital signs q.4 hours. 2. Activities as tolerated. 3. Allergies, multiple. 4. Hep-Lock. 5. Troponin I q.6 hours x2. 6. We will obtain Cardiolite stress test. 7. Cardiology consult. 8. We will continue her home medications. Job ID: [id number]
[2018-12-09 07:59] VITALS: BP 122/60; TEMP 98.4
[2018-12-09] MEDS: ALPRAZolam 0.5 MG TAB PO SCH (08:27)
[2018-12-09] MEDS ORDERED: Aspirin 81 mg Enteric Coated Tablet PO SCH (09:00)
[2018-12-09] MEDS ORDERED: Famotidine 20 MG TAB PO SCH (09:00)
[2018-12-09] MEDS ORDERED: Lisinopril/Hydrochlorothiazide 10 mg/12.5 mg Tablet PO SCH (09:00)
--- NOTE | 2018-12-09 13:55 | NM ---
NM Card Spec Sgl sty st or rst History: Chest pain Comparison: None. Findings: Resting images were obtained after the intravenous administration of technetium 99m sestami bi. Stress images were not obtained as patient refused exam. Impression: Nondiagnostic exam as no stress images were obtained.
--- NOTE | 2018-12-11 09:24 | DIS ---
DATE OF ADMISSION: 12/08/2018 DATE OF DISCHARGE: 12/09/2018 ADMITTING DIAGNOSES: 1. Chest pain, rule out myocardial infarction. 2. Coronary artery disease, status post CABG. 3. Anxiety disorder. 4. Hypertension. 5. Hyperlipidemia. 6. Chronic back pain, neck pain, abdominal pain. FINAL DIAGNOSES: 1. Chest pain, no evidence of acute myocardial infarction. The patient declined stress test. 2. Coronary artery disease, status post CABG. 3. Abdominal pain, resolved. 4. Anxiety disorder. 5. Hypertension. 6. Hyperlipidemia. 7. Chronic back pain. BRIEF SUMMARY OF HOSPITAL COURSE: Ms. Ulloa is a 63-year-old female, admitted because of abdominal pain, chest pain. The pain was pressure like, radiates to the left side, left shoulder and the neck area. In view of risk factors and coronary artery disease, the patient admitted to rule out myocardial infarction. Serial cardiac enzymes were done. The second troponin I was less than 0.010, third one was 0.019. Cardiology consultation was done. The patient was seen by Dr. Mehta. He felt the patient possibly has an angina, suggested stress test to rule out [place], ordered cardiolite stress test. The patient went for resting portion, but declined the stress portion of the stress test, so it was not complete stress test, they could not interpret. The patient did not have any more chest pain. The patient even declined to take isosorbide, which was ordered by the lung splitter. She did not have any chest pain or abdominal pain, so she is being discharged home. At the time of discharge, she was stable, her vital signs stable. Lungs clear. Heart sounds regular. Abdomen is soft and nontender, bowel sounds present. DISCHARGE MEDICATIONS: 1. Simvastatin was stopped. She was started on Lipitor 40 mg a day at bedtime. 2. Famotidine 20 mg daily. 3. Nitroglycerin p.r.n. 4. Aspirin 81 mg daily. 5. Proventil inhaler q.6 p.r.n. 6. Lisinopril with hydrochlorothiazide 10/12.5 daily. 7. Xanax 0.5 t.i.d. DISCHARGE INSTRUCTIONS: The patient will continue with cardiac diet and come for followup in 2 weeks. Job ID: [id number]
== END 2018-12-09 11:55 | disposition home or self-care (01) ==
LOC: ERS 03:59 → 2SW 06:04
PROVIDERS: ADMIT Internal Medicine; ATTEND Internal Medicine
DX: R07.89 Other chest pain (principal); R10.9 Unspecified abdominal pain; I25.10 Atherosclerotic heart disease of native coronary artery without angina pectoris; I12.9 Hypertensive chronic kidney disease with stage 1 through stage 4 chronic kidney disease, or unspecified chronic kidney disease; N18.3 Chronic kidney disease, stage 3 (moderate); F41.9 Anxiety disorder, unspecified; E78.5 Hyperlipidemia, unspecified; G89.29 Other chronic pain; M54.9 Dorsalgia, unspecified; F17.210 Nicotine dependence, cigarettes, uncomplicated; Z79.82 Long term (current) use of aspirin; Z79.899 Other long term (current) drug therapy; Z88.1 Allergy status to other antibiotic agents; Z88.2 Allergy status to sulfonamides; Z88.5 Allergy status to narcotic agent; Z88.8 Allergy status to other drugs, medicaments and biological substances; Z95.2 Presence of prosthetic heart valve
CPT/HCPCS: 36415; 36416; 71045; 74176; 78451; 80053; 81003; 81015; 83690; 84484; 85025; 90471; 90686; 93005; A9500; G0008; G0378

== ENCOUNTER 2021-01-19 15:57 | Outpatient (CLI) | payer OTHER | END 2021-01-19 15:58 | disposition home or self-care (01) | LOC: RAD-FRANK 15:57 | PROVIDERS: ATTEND Nurse Practitioner Family | DX: M79.671 Pain in right foot (principal); M79.604 Pain in right leg; M25.551 Pain in right hip ==

== ENCOUNTER 2021-02-01 14:43 | Emergency (ER) | payer OTHER ==
[2021-02-01 18:20] LABS: #Basophils 0.1 thou/uL (0.0-0.2); #Eosinphils 0.4 thou/uL (0.0-0.7); #Lymphocytes 3.1 thou/uL (1.20-3.40); #Monocytes 0.7 thou/uL (0.11-0.59); #Neutrophils 7.4 thou/uL (1.40-6.50); %Basophils 0.9 % (0.0-1.0); %Eosinophils 3.3 % (0.0-10.0); %Lymphocytes 26.4 % (21.0-51.0); %Monocytes 5.9 % (0.0-10.0); %Neutrophils 63.5 % (42.0-75.0); Hemoglobin 11.7 g/dL (12.0-16.0); Mean Corpuscular Hemoglobin 30.7 pg (27.0-31.0); Mean Corpuscular Volume 87.6 fL (78.0-98.0); Mean Platelet Volume 8.5 fL (7.4-10.4); Platelet Count 254 thou/uL (130-400); RBC Distribution Width 11.8 % (11.5-14.5); White Blood Cell (WBC) Count 11.7 thou/uL (4.8-10.8)
[2021-02-01 18:44] LABS: ALT (SGPT) 12 U/L (8-55); AST (SGOT) 15 U/L (5-34); Albumin 3.7 g/dL (3.4-4.8); Alkaline Phosphatase 93 U/L (40-110); Anion Gap 11 mmol/L (10-20); BUN (Urea Nitrogen) 20 mg/dL (9.8-20.1); Bilirubin, Total 0.3 mg/dL (0.2-1.2); CK (CPK) 83 U/L (29-168); Calc. Creatinine Clearance 0 mL/min (70-130); Calcium 9.3 mg/dL (7.8-10.44); Carbon Dioxide 26 mmol/L (23-31); Chloride 104 mmol/L (98-107); Globulin 3.3 g/dL (2.4-3.5); Glucose 99 mg/dL (80-115); Potassium 4.3 mmol/L (3.5-5.1); Sodium 137 mmol/L (136-145)
== END 2021-02-01 20:01 | disposition home or self-care (01) ==
LOC: ERS 14:43
DX: M54.50 Low back pain, unspecified (principal); I12.9 Hypertensive chronic kidney disease with stage 1 through stage 4 chronic kidney disease, or unspecified chronic kidney disease; N18.9 Chronic kidney disease, unspecified; E78.5 Hyperlipidemia, unspecified; E78.00 Pure hypercholesterolemia, unspecified; J44.9 Chronic obstructive pulmonary disease, unspecified; F17.210 Nicotine dependence, cigarettes, uncomplicated; Z79.82 Long term (current) use of aspirin; Z79.899 Other long term (current) drug therapy
CPT/HCPCS: 36415; 80053; 82550; 85025; 93923

== ENCOUNTER 2021-04-03 11:08 | Emergency (ER) | payer OTHER ==
[2021-04-03 11:36] LABS: #Basophils 0.1 thou/uL (0.0-0.2); #Eosinphils 0.3 thou/uL (0.0-0.7); #Lymphocytes 2.2 thou/uL (1.20-3.40); #Monocytes 0.8 thou/uL (0.11-0.59); #Neutrophils 6.4 thou/uL (1.40-6.50); %Eosinophils 3.4 % (0.0-10.0); %Lymphocytes 22.4 % (21.0-51.0); %Neutrophils 65.1 % (42.0-75.0); Hemoglobin 11.6 g/dL (12.0-16.0); Mean Corpuscular HGB CONC 32.8 g/dL (32.0-36.0); Mean Corpuscular Hemoglobin 29.3 pg (27.0-31.0); Mean Corpuscular Volume 89.4 fL (78.0-98.0); Mean Platelet Volume 8.4 fL (7.4-10.4); Platelet Count 246 thou/uL (130-400); RBC Distribution Width 11.9 % (11.5-14.5); Red Blood Cell (RBC) Count 3.96 mill/uL (4.20-5.40); White Blood Cell (WBC) Count 9.8 thou/uL (4.8-10.8)
[2021-04-03 12:04] LABS: ALT (SGPT) 13 U/L (8-55); AST (SGOT) 16 U/L (5-34); Alkaline Phosphatase 91 U/L (40-110); Anion Gap 11 mmol/L (10-20); BUN (Urea Nitrogen) 19 mg/dL (9.8-20.1); Bilirubin, Total 0.4 mg/dL (0.2-1.2); Calc. Creatinine Clearance 0 mL/min (70-130); Calcium 8.7 mg/dL (7.8-10.44); Carbon Dioxide 27 mmol/L (23-31); Chloride 103 mmol/L (98-107); Glucose 88 mg/dL (80-115); Lipase 37 U/L (8-78); Potassium 3.9 mmol/L (3.5-5.1); Sodium 137 mmol/L (136-145)
[2021-04-03 14:19] LABS: Troponin I Less than 0.010 ng/mL (< 0.028)
== END 2021-04-03 14:56 | disposition home or self-care (01) ==
LOC: ERS 11:08
DX: R07.9 Chest pain, unspecified (principal); J43.9 Emphysema, unspecified; I10 Essential (primary) hypertension; F17.290 Nicotine dependence, other tobacco product, uncomplicated; Z79.899 Other long term (current) drug therapy
CPT/HCPCS: 36415; 71045; 80053; 83690; 84484; 85025; 93005; 94760

== ENCOUNTER 2021-07-26 10:54 | Observation (INO) | payer MEDICARE, MEDICAID ==
[2021-07-26 11:47] LABS: #Basophils 0.1 thou/uL (0.0-0.2); #Eosinphils 0.3 thou/uL (0.0-0.7); #Lymphocytes 2.1 thou/uL (1.20-3.40); #Monocytes 0.7 thou/uL (0.11-0.59); #Neutrophils 5.3 thou/uL (1.40-6.50); %Basophils 1.4 % (0.0-1.0); %Eosinophils 3.3 % (0.0-10.0); %Lymphocytes 24.6 % (21.0-51.0); %Monocytes 7.8 % (0.0-10.0); %Neutrophils 62.8 % (42.0-75.0); Hemoglobin 12.4 g/dL (12.0-16.0); Mean Corpuscular HGB CONC 33.8 g/dL (32.0-36.0); Mean Corpuscular Volume 88.9 fL (78.0-98.0); Mean Platelet Volume 8.4 fL (7.4-10.4); Platelet Count 259 thou/uL (130-400); Red Blood Cell (RBC) Count 4.12 mill/uL (4.20-5.40); White Blood Cell (WBC) Count 8.5 thou/uL (4.8-10.8)
[2021-07-26 11:54] LABS: ALT (SGPT) 13 U/L (8-55); AST (SGOT) 16 U/L (5-34); Albumin 4.2 g/dL (3.4-4.8); Alkaline Phosphatase 89 U/L (40-110); Anion Gap 14 mmol/L (10-20); BUN (Urea Nitrogen) 22 mg/dL (9.8-20.1); Bilirubin, Total 0.5 mg/dL (0.2-1.2); Calc. Creatinine Clearance 0 mL/min (70-130); Calcium 9.2 mg/dL (7.8-10.44); Carbon Dioxide 26 mmol/L (23-31); Chloride 105 mmol/L (98-107); Globulin 3.1 g/dL (2.4-3.5); Glucose 86 mg/dL (80-115); Lipase 38 U/L (8-78); Potassium 4.1 mmol/L (3.5-5.1); Protein, Total 7.3 g/dL (5.8-8.1); Sodium 141 mmol/L (136-145)
[2021-07-26 13:08] LABS: Bilirubin Negative (Negative); Blood, Urine Negative (Negative); Clarity Clear (Clear); Glucose, Urine (Dipstick) Normal (Negative); Ketone, Urine Negative (Negative); Leukocyte Negative Leu/uL (Negative); Nitrite Negative (Negative); Protein, Urine (Dipstick) Negative (Neg-Trace); Specific Gravity, Urine 1.016 (1.002-1.036); Urobilinogen Normal mg/dL (Less than 2)
[2021-07-26 15:22] VITALS: BMI 28.9
[2021-07-26 16:08] VITALS: BP 178/79; TEMP 98
[2021-07-26] MEDS ORDERED: Acetaminophen 325 MG TAB PO PRN (19:15)
[2021-07-26] MEDS ORDERED: Ondansetron ODT 4 MG TAB SL PRN (19:15)
[2021-07-26] MEDS ORDERED: Ondansetron PF 4 MG/2 ML Vial IVP PRN (19:15)
== END 2021-07-26 18:47 | disposition left against medical advice (07) ==
LOC: ERS 10:54 → 2SW 13:56
PROVIDERS: ADMIT Internal Medicine; ATTEND Internal Medicine
DX: R07.9 Chest pain, unspecified (principal); E78.5 Hyperlipidemia, unspecified; J43.9 Emphysema, unspecified; I12.9 Hypertensive chronic kidney disease with stage 1 through stage 4 chronic kidney disease, or unspecified chronic kidney disease; N18.4 Chronic kidney disease, stage 4 (severe); D63.1 Anemia in chronic kidney disease; N17.9 Acute kidney failure, unspecified; I25.10 Atherosclerotic heart disease of native coronary artery without angina pectoris; Z53.29 Procedure and treatment not carried out because of patient's decision for other reasons; Z87.891 Personal history of nicotine dependence; Z79.82 Long term (current) use of aspirin; Z79.899 Other long term (current) drug therapy; Z88.1 Allergy status to other antibiotic agents; Z88.2 Allergy status to sulfonamides; Z88.4 Allergy status to anesthetic agent; Z88.5 Allergy status to narcotic agent; Z88.6 Allergy status to analgesic agent; Z88.8 Allergy status to other drugs, medicaments and biological substances; Z95.1 Presence of aortocoronary bypass graft
CPT/HCPCS: 36415; 71045; 80053; 81003; 83690; 84484; 85025; 93005; 94760; G0378

== ENCOUNTER 2021-10-04 21:27 | Emergency (ER) | payer MEDICARE, OTHER ==
[2021-10-04 22:12] LABS: #Eosinphils 0.1 thou/uL (0.0-0.7); #Lymphocytes 2.1 thou/uL (1.20-3.40); #Monocytes 1.4 thou/uL (0.11-0.59); #Neutrophils 9.3 thou/uL (1.40-6.50); %Basophils 0.2 % (0.0-1.0); %Eosinophils 0.9 % (0.0-10.0); %Lymphocytes 16.2 % (21.0-51.0); %Monocytes 10.5 % (0.0-10.0); %Neutrophils 72.2 % (42.0-75.0); Hemoglobin 9.6 g/dL (12.0-16.0); Mean Corpuscular HGB CONC 33.4 g/dL (32.0-36.0); Mean Corpuscular Hemoglobin 28.8 pg (27.0-31.0); Mean Platelet Volume 8.2 fL (7.4-10.4); Platelet Count 366 thou/uL (130-400); RBC Distribution Width 12.4 % (11.5-14.5); Red Blood Cell (RBC) Count 3.33 mill/uL (4.20-5.40); White Blood Cell (WBC) Count 12.9 thou/uL (4.8-10.8)
[2021-10-04 22:30] LABS: Acetaminophen Less than 10.0 mcg/mL (10.0-30.0); Alcohol Less than 10 mg/dL (Less than 10); Salicylate Less than 8.0 mg/dL (15.0-30.0)
[2021-10-04 22:34] LABS: ALT (SGPT) 18 U/L (8-55); AST (SGOT) 19 U/L (5-34); Albumin 3.5 g/dL (3.4-4.8); Alkaline Phosphatase 72 U/L (40-110); Anion Gap 16 mmol/L (10-20); BUN (Urea Nitrogen) 36 mg/dL (9.8-20.1); Bilirubin, Total 0.6 mg/dL (0.2-1.2); CK (CPK) 172 U/L (29-168); Calc. Creatinine Clearance 0 mL/min (70-130); Calcium 8.9 mg/dL (7.8-10.44); Carbon Dioxide 21 mmol/L (23-31); Chloride 108 mmol/L (98-107); Estimated GFR 24; Globulin 3.5 g/dL (2.4-3.5); Glucose 97 mg/dL (80-115); Lipase 73 U/L (8-78); Potassium 3.9 mmol/L (3.5-5.1); Sodium 141 mmol/L (136-145)
[2021-10-04 22:39] LABS: Bacteria/HPF 4+ HPF (None Seen); Bilirubin Negative (Negative); Blood, Urine Negative (Negative); Clarity Clear (Clear); Glucose, Urine (Dipstick) Normal (Negative); Ketone, Urine Negative (Negative); Leukocyte 250 Leu/uL (Negative); Nitrite 2+ (Negative); Protein, Urine (Dipstick) Negative (Neg-Trace); RBC/HPF 0-3 HPF (0-3); Specific Gravity, Urine 1.012 (1.002-1.036); Squamous Epithelial 0-3 HPF (0-3); Urobilinogen Normal mg/dL (Less than 2); WBC/HPF 21-50 HPF (0-3); pH, Urine 5.5 (5.0-9.0)
[2021-10-04 22:48] LABS: Amphetamine Not Detected (NotDetected); Barbiturates Screen Not Detected (NotDetected); Benzodiazepine Screen Detected (NotDetected); Cocaine Metabolite Screen Not Detected (NotDetected); Methadone Not Detected (NotDetected); Methamphetamine Not Detected (NotDetected); Opiate Screen Not Detected (NotDetected); Oxycodone Screen Not Detected (NotDetected); Phencyclidine (PCP) Not Detected (NotDetected); THC/Cannabinoid Screen Not Detected (NotDetected); Tricyclic Screen Not Detected (NotDetected)
[2021-10-04] MEDS ORDERED: cefTRIAXone\\ROCEPHIN 2 GM VIAL ONE (22:51)
== END 2021-10-05 00:01 | disposition home or self-care (01) ==
LOC: ERS 21:27
DX: N30.00 Acute cystitis without hematuria (principal); F13.90 Sedative, hypnotic, or anxiolytic use, unspecified, uncomplicated; E78.5 Hyperlipidemia, unspecified; J43.9 Emphysema, unspecified; I12.9 Hypertensive chronic kidney disease with stage 1 through stage 4 chronic kidney disease, or unspecified chronic kidney disease; N18.9 Chronic kidney disease, unspecified; I25.2 Old myocardial infarction
CPT/HCPCS: 36415; 36416; 70450; 71045; 80053; 80306; 80307; 81003; 81015; 82140; 82550; 83690; 84484; 85025; 87077; 87086; 87186; 93005; 96361; 96365; J0696

== ENCOUNTER 2022-03-09 06:32 | Emergency (ER) | payer MEDICARE, OTHER, MEDICAID ==
[2022-03-09 07:41] LABS: #Basophils 0.1 thou/uL (0.0-0.2); #Eosinphils 0.3 thou/uL (0.0-0.7); #Lymphocytes 1.9 thou/uL (1.20-3.40); #Monocytes 0.5 thou/uL (0.11-0.59); %Basophils 1.4 % (0.0-1.0); %Eosinophils 3.6 % (0.0-10.0); %Lymphocytes 23.9 % (21.0-51.0); Hemoglobin 11.6 g/dL (12.0-16.0); Mean Corpuscular HGB CONC 34.2 g/dL (32.0-36.0); Mean Corpuscular Hemoglobin 30.5 pg (27.0-31.0); Mean Platelet Volume 8.8 fL (7.4-10.4); Platelet Count 253 10x3/uL (130-400); RBC Distribution Width 11.8 % (11.5-14.5); White Blood Cell (WBC) Count 7.8 10x3/uL (4.8-10.8)
[2022-03-09 08:07] LABS: ALT (SGPT) 14 U/L (8-55); AST (SGOT) 15 U/L (5-34); Albumin 3.8 g/dL (3.4-4.8); Alkaline Phosphatase 78 U/L (40-110); Anion Gap 15 mmol/L (10-20); BUN (Urea Nitrogen) 23 mg/dL (9.8-20.1); Bilirubin, Total 0.5 mg/dL (0.2-1.2); Calc. Creatinine Clearance 0 mL/min (70-130); Carbon Dioxide 24 mmol/L (23-31); Chloride 103 mmol/L (98-107); Estimated GFR 29; Globulin 3.1 g/dL (2.4-3.5); Glucose 88 mg/dL (80-115); Potassium 3.9 mmol/L (3.5-5.1); Protein, Total 6.9 g/dL (5.8-8.1); Sodium 138 mmol/L (136-145)
== END 2022-03-09 09:08 | disposition home or self-care (01) ==
LOC: ERS 06:32
DX: R07.89 Other chest pain (principal); M79.662 Pain in left lower leg; I12.9 Hypertensive chronic kidney disease with stage 1 through stage 4 chronic kidney disease, or unspecified chronic kidney disease; N18.9 Chronic kidney disease, unspecified; E78.5 Hyperlipidemia, unspecified; J44.9 Chronic obstructive pulmonary disease, unspecified; F17.290 Nicotine dependence, other tobacco product, uncomplicated; Z79.899 Other long term (current) drug therapy
CPT/HCPCS: 36415; 71045; 80053; 84484; 85025; 93005